=== PATIENT | male | born 1990 | race Two or more races ===

== ENCOUNTER 2024-08-03 10:09 | Emergency (ER) | payer OTHER, SELFPAY ==
--- NOTE | 2024-08-03 10:11 | PD.EDHEAD ---
ED Head Injury RME/HPI General Chief complaint: Altered Mental Status Stated complaint: UNRESPONSIVE Time Seen by Provider: 08/03/24 10:20 Arrival date/time: 08/03/24 10:09 RME / HPI RME / HPI Narrative: 33 year old male with no stated medical history presents to the ED BIBA from [facility] for unresponsiveness. Per medics, staff reported patient was witnessed falling from the top bunk by cellmate and became unresponsive. Medics report on their arrival patient was a GCS of 3, pupils were constricted, with respiratory rate of 8, and was bagged via BVM. Was given a total of 2mg IN Narcan with some response. En route was placed on an Oxy Mask and saturating well. On arrival to ED, patient reports pain to his head, neck, and upper back. Patient does not recall what occurred. No other complaints reported. Review of Systems Review of Systems Narrative Review of Systems: GEN: No fever, no chills, no weight loss EYES: No discharge, no visual changes, no pain HEENT: No ear pain, no congestion, no sore throat PULM: No shortness of breath, no cough, no congestion CV: No chest pain, no dyspnea on exertion, no palpitations GI: No nausea, no vomiting, no diarrhea, no pain, no constipation : No frequency, no urgency and no dysuria MUSC/SKEL: +neck/back pain SKIN: No rash NEURO: No weakness, +headache ED Exam Narrative Physical exam: GENERAL APPEARANCE: alert and oriented x 4, well-developed, well-nourished, no acute distress HEENT: Normocephalic, atraumatic; pupils equal, round, reactive to light; EOMI; mucous membranes pink, moist; oropharynx clear NECK: Patient arrived in C-spine LUNGS: CTABL; no wheezes, no rales, no rhonchi HEART: Regular rate, regular rhythm; normal S1, S2; no murmurs ABDOMEN: non distended; normal BS; soft, no tenderness, no guarding, no rebound; no masses, no organomegaly, no hernia BACK: Spinous process tenderness around T12, no step off, no crepitus ; no CVA tenderness EXTREMITIES: atraumatic; no edema NEUROLOGIC: awake; alert and oriented x4; cranial nerves II-XII grossly intact; no focal sensory or motor deficits PSYCHIATRIC: appropriate mood and affect SKIN: warm, dry, normal color; no rashes Course Quality Measures none Orders Category Date Time Status XR cervical spine 2-3V Stat Exams 08/03/24 10:37 Completed XR lumbar spine min 4V Stat Exams 08/03/24 10:37 Completed XR thoracic spine 3V Stat Exams 08/03/24 10:37 Completed Alcohol, Blood Medical Stat Lab 08/03/24 10:35 Completed CBC Stat Lab 08/03/24 10:35 Completed CMP [Comprehensive Metabolic Panel] Stat Lab 08/03/24 10:35 Completed Drug Screen,Urine Stat Lab 08/03/24 10:35 Completed UA, C/S IF [Urinalysis, C/S if Indicated] Stat Lab 08/03/24 10:35 Completed Urine Culture Stat Lab 08/03/24 10:35 Received Reevaluation(s) Reevaluation #1: Patient walking, no complications. Time: 12:50 Vital Signs Vital signs: Vital Signs Temperature 97 F 08/03/24 10:24 Pulse Rate 75 08/03/24 10:24 Respiratory Rate 14 08/03/24 10:24 Blood Pressure 138/97 H 08/03/24 10:24 Pulse Oximetry (%) 100 08/03/24 10:24 Oxygen Delivery Method Room Air 08/03/24 10:24 Pulse ox is 100% on room air which is adequate. Head Injury MDM Narrative MDM Narrative:: Keshia Stoddard am scribing for and in the presence of Dr. Guzman. Patient data External records reviewed:: [facility] previous records (Per EMR review, patient has no previous visits ) and EMS form Clinical information provided by:: patient and EMS Social determinants that could affect healthcare access:: housing (Currently incarcerated ) Patient has the following chronic illnesses:: None reported How is presenting disease/condition affected by chronic disease/condition?: no chronic disease Evaluation data The following diagnostics were reviewed and interpreted by me:: lab results and radiology exam(s) Lab and/or radiology exams considered but not ordered:: None Interpretation Summary: Ordering Physician: Maureen Guzman MD Date of Service: 08/03/24 Procedure(s): XR cervical spine 2-3V Accession Number(s): [id number] cc: Arnulfo([facility])Valencia MD; Cristo Muniz MD; Maureen Guzman MD~ Examination: Cervical spine 3 views Technique one AP lateral coned AP odontoid cervical spine 3 views Exam date and time: August 03, 2024 1124 hours INDICATIONS: Injury to the neck today, neck pain. FINDINGS: Adequate alignment cervical vertebral bodies No cervical fracture Intact odontoid IMPRESSION: No acute cervical fracture If pain persists, suggest follow-up swimmer's lateral view for better visualization C7 Dictated By: Cristo Muniz MD Signed By: <Electronically signed by Cristo Muniz MD in OV> 08/03/241154 Ordering Physician: Maureen Guzman MD Date of Service: 08/03/24 Procedure(s): XR lumbar spine min 4V Accession Number(s): [id number] [facility]: [facility]Valencia MD; Cristo Muniz MD; Maureen Guzman MD~ Examination: Lumbar spine 3 views Technique one AP lateral coned lateral lower lumbar spine 3 views Exam date and time: August 03, 2024 1128 hours INDICATIONS: Injury to lower back today, lower back pain. FINDINGS: Satisfactory alignment lumbar vertebral bodies No lumbar fracture No lumbar disc narrowing Calcifications in the right L3, 9 mm, clinical correlation advised, consider renal sonography follow-up IMPRESSION: No lumbar fracture Dictated By: Cristo Muniz MD Signed By: <Electronically signed by Cristo Muniz MD in OV> 08/03/241155 Ordering Physician: Maureen Guzman MD Date of Service: 08/03/24 Procedure(s): XR thoracic spine 3V Accession Number(s): [id number] cc: Arnulfo([facility])Valencia MD; Cristo Muniz MD; Maureen Guzman MD~ Examination: Thoracic spine 3 views Technique one AP lateral coned lateral upper dorsal spine 3 views Exam date and time: August 03, 2024 and 23 hours INDICATIONS: Injury to the mid back today, mid back pain. FINDINGS: No acute thoracic fracture visualized Pedicles appear intact IMPRESSION: No acute thoracic fracture visualized Visualization of the upper dorsal vertebral bodies on the coned view is not optimal, recommend repeat better penetrated view upper dorsal spine as clinically warranted Dictated By: Cristo Muniz MD Signed By: <Electronically signed by Cristo Muniz MD in OV> 08/03/24 [id number] Medications / Prescriptions Medications or Prescriptions considered but not ordered:: None Medication administrations:: None Consultations Consultation(s) initiated? (list below): No Diagnosis Differential diagnosis head injury: concussion without loss of consciousness, closed head injury, subarachnoid hematoma, postconcussion syndrome, subdural hematoma and concussion with loss of consciousness Most likely diagnosis given after review of the tests above:: Altered mental status Fall Back pain Amphetamine abuse Admission Indicated Admission indicated?: not indicated Admission Request Was there a request for admission?: No Disposition Plan Disposition Plan: Discharge Discharge Attestation Discharge Attestation: The patient and all family members were given an opportunity to ask questions and understood the discharge instructions. Discharge instructions specifically effects, indications for sooner follow up or return to the emergency department, and the expected course of current diagnosis. Patient condition: Stable Discharge Plan Plan Patient Disposition: Prison/Court/Law Prescriptions/Referrals [facility] [Primary Care Provider] - In 1 week Problem List Clinical Impression: Altered mental status, Fall, Back pain, Amphetamine abuse Patient/Caregiver Discharge Instructions Education Materials: ED Back Care Tips Print Language: Faroese
[2024-08-03 10:15] VITALS: PULSE 85; RESP 8; O2SAT 98; BMI 23.5
[2024-08-03 10:24] VITALS: BP 138/97; PULSE 75; RESP 14; TEMP 36.1; O2SAT 100
--- NOTE | 2024-08-03 10:37 | XR_ITS ---
Examination: Lumbar spine 3 views Technique one AP lateral coned lateral lower lumbar spine 3 views Exam date and time: August 03, 2024 1128 hours INDICATIONS: Injury to lower back today, lower back pain. FINDINGS: Satisfactory alignment lumbar vertebral bodies No lumbar fracture No lumbar disc narrowing Calcifications in the right L3, 9 mm, clinical correlation advised, consider renal sonography follow-up IMPRESSION: No lumbar fracture
--- NOTE | 2024-08-03 10:37 | XR_ITS ---
Examination: Thoracic spine 3 views Technique one AP lateral coned lateral upper dorsal spine 3 views Exam date and time: August 03, 2024 and 23 hours INDICATIONS: Injury to the mid back today, mid back pain. FINDINGS: No acute thoracic fracture visualized Pedicles appear intact IMPRESSION: No acute thoracic fracture visualized Visualization of the upper dorsal vertebral bodies on the coned view is not optimal, recommend repeat better penetrated view upper dorsal spine as clinically warranted
--- NOTE | 2024-08-03 10:37 | XR_ITS ---
Examination: Cervical spine 3 views Technique one AP lateral coned AP odontoid cervical spine 3 views Exam date and time: August 03, 2024 1124 hours INDICATIONS: Injury to the neck today, neck pain. FINDINGS: Adequate alignment cervical vertebral bodies No cervical fracture Intact odontoid IMPRESSION: No acute cervical fracture If pain persists, suggest follow-up swimmer's lateral view for better visualization C7
[2024-08-03 10:44] LABS: Collection Type, Urine Catheter
[2024-08-03 10:46] LABS: Basophils % (Auto) 0 % (0-2.5); Eosinophils % (Auto) 0 % (0-10); Hemoglobin 15.2 g/dL (13.5-16.0); Immature Granulocytes % (Auto) 0 % (0-0); Immature Granulocytes Auto 0.02 Thou/mm3 (0.00-0.00); Lymphocytes # (Auto) 2.3 Thou/mm3 (1.0-4.8); Lymphocytes % (Auto) 27 % (10-50); Mean Corpuscular HGB Conc 35.3 g/dl (31.0-37.0); Mean Corpuscular Hemoglobin 29.6 pg (25.0-35.0); Mean Corpuscular Volume 84 fL (80-100); Monocytes # (Auto) 0.5 Thou/mm3 (0.0-0.8); Monocytes % (Auto) 6 % (0-12); Neutrophils # (Auto) 5.5 Thou/mm3 (1.8-7.7); Neutrophils % (Auto) 66 % (37-80); Nucleated Red Blood Cell % 0 /100 WBC (0); Platelet Count 347 Thou/mm3 (140-440); RDW Standard Deviation 38.1 fL (35.1-43.9); Red Blood Count 5.14 Miln/mm3 (4.50-5.90); White Blood Count 8.4 Thou/mm3 (3.8-10.6)
[2024-08-03 10:57] LABS: Amphetamine/Methamp Scrn,U Positive (Negative); Barbiturate Screen,Urine Negative (Negative); Benzodiazepines Screen,Urine Negative (Negative); Benzoylecgonine Screen, Ur Negative (Negative); Fentanyl Screen,Urine Negative (Negative); Opiate Screen,Urine Negative (Negative); THC Screen,Urine Negative (Negative)
[2024-08-03 11:00] LABS: Bilirubin,Urine Negative (Negative); Blood,Urine Negative (Negative); Clarity,Urine Clear (Clear/Hazy); Color,Urine Yellow (Lt Yel-Yel); Culture Indicated,Urine Yes; Glucose, Urine Negative (Negative); Ketones,Urine Negative (Negative); Leukocyte Esterase,Urine Negative (Negative); Nitrite,Urine Negative (Negative); PH,Urine 7.5 (5.0-7.0); Protein,Urine Trace (Neg - Trace); RBC,Urine 2 /hpf (0-3); Specific Gravity,Urine 1.022 (1.001-1.035); Squamous Epithelial Cell,Urine 1 /hpf (0-5); Urobilinogen,Urine Negative mg/dL (0.0-1.0); WBC,Urine 11 /hpf (0-5)
[2024-08-03 11:04] LABS: Alanine Aminotransferase 14 U/L (10-49); Albumin/Globulin Ratio 1.9 (1.2-2.2); Alcohol, Blood Medical < 10.0 mg/dL (0-10.0); Alkaline Phosphatase 118 U/L (46-116); Anion Gap 5 (7-16); Aspartate Amino Transferase 16 U/L (0-34); BUN/Creatinine Ratio 13 Ratio (12-20); Bilirubin,Total 0.7 mg/dL (0.3-1.2); Blood Urea Nitrogen 10 mg/dL (9-23); Calcium 9.6 mg/dL (8.3-10.6); Calcium (Corrected) 9.6 mg/dL (8.5-10.1); Carbon Dioxide 30.2 mMol/L (20.0-31.0); Chloride 103 mMol/L (98-107); Creatinine (Component) 0.8 mg/dL (0.6-1.3); Estimated Creatinine Clearance 121.6 mL/min (>60); Globulin 2.7 gm/dL (2.3-3.5); Glucose 92 mg/dL (74-106); Osmolality,Calculated 274 (275-295); Potassium 4.1 mMol/L (3.4-5.1); Sodium 138 mMol/L (136-145); Total Protein 7.7 gm/dL (5.7-8.2); eGFR > 60 See Note
[2024-08-03 12:09] VITALS: BP 125/74; PULSE 74; RESP 16; TEMP 37.1; O2SAT 100
[2024-08-03 13:30] VITALS: BP 125/74; PULSE 70; RESP 20; TEMP 36.6; O2SAT 100
== END 2024-08-03 13:30 ==
PROVIDERS: Emergency Provider Emergency Medicine; PCP Internal Medicine
DX: S19.9XXA Unspecified injury of neck, initial encounter (principal); S29.9XXA Unspecified injury of thorax, initial encounter; S39.92XA Unspecified injury of lower back, initial encounter; F15.10 Other stimulant abuse, uncomplicated; W19.XXXA Unspecified fall, initial encounter
CPT/HCPCS: 36415; 72040; 72072; 72100; 72110; 80053; 80307; 80320; 81001; 85025; 87086; 99283; G0480